=== PATIENT | male | born 1990 | race Two or more races ===

== ENCOUNTER 2017-06-06 13:07 | Inpatient (IN) | payer BC, OTHER ==
[~2017-06-06] VITALS: Ht 188 cm; Wt 184.0 kg
[2017-06-06] MEDS ORDERED: IBUPROFEN 200 MG TABLET ONE (13:57)
[2017-06-06] MEDS ORDERED: AMPICILLIN/SULBACTAM 3 GM in SODIUM CHLORIDE 0.9% 100 ML IVPB ONE (14:00)
[2017-06-06] MEDS ORDERED: VANCOMYCIN PER PHARMACY MC ONE (14:00)
[2017-06-06] MEDS ORDERED: SODIUM CHLORIDE FLUSH 10ML SYR IVF ONE (14:00)
[2017-06-06] MEDS ORDERED: AMPICILLIN/SULBACTAM 3 GM in SODIUM CHLORIDE 0.9% 50 ML IVPB ONE (14:00)
[2017-06-06] MEDS ORDERED: IBUPROFEN 200 MG TABLET PO ONE (14:00)
[2017-06-06] MEDS ORDERED: SODIUM CHLORIDE 0.9% 1,000ML IVBOLUS ONE ×2 (14:00→14:30)
[2017-06-06 14:13] LABS: HEMATOCRIT 46.1 % (39.2-51.8); HEMOGLOBIN 15.4 g/dL (13.7-18.0); WHITE BLOOD COUNT 27.1 x10^3/uL (3.4-10)
[2017-06-06 14:20] LABS: BLOOD UREA NITROGEN 9 mg/dL (7-18)
[2017-06-06] MEDS ORDERED: VANCOMYCIN PER PHARMACY MC PRN ×2 (14:30→17:30)
[2017-06-06] MEDS ORDERED: VANCOMYCIN 2,400 MG in SODIUM CHLORIDE 0.9% 500 ML IV ONE (14:30)
[2017-06-06] MEDS ORDERED: PIPERACILLIN/TAZO/PMX 3.375GM 50 ML IV ONE (14:30)
[2017-06-06 14:56] LABS: DIFF TOTAL CELLS COUNTED 100 CELL DIFF
[2017-06-06 14:59] LABS: ANISOCYTOSIS 1+; VERIFY COUNTS? YES
[2017-06-06] MEDS ORDERED: HYDROmorphone 2 MG/ML, 1ML IVPush ONE (15:00)
[2017-06-06] MEDS ORDERED: HYDROmorphone 1 MG/ML, 1ML ONE (15:05)
[2017-06-06] MEDS ORDERED: [UNRECOGNIZED DRUG - REMARK] MC SCH (16:00)
[2017-06-06] MEDS ORDERED: VANCOMYCIN PMX 1GM/200ML 200 ML IV ONE (16:00)
[2017-06-06] MEDS ORDERED: hydrALAzine 20 MG/ML, 1ML IVPush PRN (16:00)
[2017-06-06 16:15] VITALS: BP 129/85
[2017-06-06] MEDS ORDERED: CALCIUM CARBONATE 500 MG TAB.CHEW PO PRN (17:43)
[2017-06-06] MEDS ORDERED: PHARMACOKINETIC CONSULTATION MC ONE (18:00)
[2017-06-06] MEDS ORDERED: PHARMACOKINETIC MONITORING MC PRN (18:00)
[2017-06-06] MEDS ORDERED: ENOXAPARIN 40 MG/0.4 ML SQ SCH (18:00)
[2017-06-06] MEDS: HYDROcodone/APAP 5/325 TABLET PO PRN ×2 (18:06→23:50)
[2017-06-06] MEDS: ENOXAPARIN 40 MG/0.4 ML SQ SCH (18:07)
[2017-06-06] MEDS: SODIUM CHLORIDE 0.9% 1,000 ML IV SCH (18:07)
[2017-06-06] MEDS ORDERED: VANCOMYCIN 2,500 MG in SODIUM CHLORIDE 0.9% 500 ML IV ONE (19:00)
[2017-06-06 19:46] VITALS: BP 118/72
[2017-06-06] MEDS: AMPICILLIN/SULBACTAM 3 GM in SODIUM CHLORIDE 0.9% 100 ML IV SCH (20:00)
[2017-06-06] MEDS: PANTOPROZOLE 40MG TABLET PO SCH (21:19)
[2017-06-06] MEDS: TEMAZEPAM 15 MG CAPSULE PO PRN (23:45)
[2017-06-07 00:42] VITALS: BP 91/51
[2017-06-07] MEDS: SODIUM CHLORIDE 0.9% 1,000 ML IV SCH ×3 (01:00→23:45)
[2017-06-07] MEDS: AMPICILLIN/SULBACTAM 3 GM in SODIUM CHLORIDE 0.9% 100 ML IV SCH ×4 (01:11→21:00)
[2017-06-07] MEDS: ONDANSETRON 2MG/ML, 2ML IVPush PRN ×2 (04:46→18:20)
[2017-06-07] MEDS: morphine SULFATE 10 MG/ML, 1ML IVPush PRN ×5 (04:46→18:33)
[2017-06-07 05:53] LABS: HEMATOCRIT 44.8 % (39.2-51.8); WHITE BLOOD COUNT 21.1 x10^3/uL (3.4-10)
[2017-06-07 06:03] LABS: ASPARTATE AMINO TRANSFERASE 15 U/L (15-37); BLOOD UREA NITROGEN 8 mg/dL (7-18)
[2017-06-07] MEDS: ENOXAPARIN 40 MG/0.4 ML SQ SCH ×2 (06:15→17:14)
[2017-06-07] MEDS: VANCOMYCIN 2,200 MG in SODIUM CHLORIDE 0.9% 500 ML IV SCH (07:00)
[2017-06-07 07:38] VITALS: BP 120/76
[2017-06-07] MEDS: VANCOMYCIN PER PHARMACY MC SCH (09:00)
[2017-06-07] MEDS: PANTOPROZOLE 40MG TABLET PO SCH ×2 (09:26→20:10)
[2017-06-07] MEDS: ACETAMINOPHEN 325 MG TABLET PO PRN ×2 (10:17→20:22)
[2017-06-07 13:52] VITALS: BP 121/76
[2017-06-07] MEDS ORDERED: POTASSIUM PHOSPHATE 44 MEQ in SODIUM CHLORIDE 0.9% 500 ML IV ONE (16:30)
[2017-06-07 19:55] VITALS: BP 132/75
[2017-06-07] MEDS: TEMAZEPAM 15 MG CAPSULE PO PRN (20:22)
[2017-06-08] MEDS: morphine SULFATE 10 MG/ML, 1ML IVPush PRN ×6 (00:09→21:54)
[2017-06-08] MEDS: ONDANSETRON 2MG/ML, 2ML IVPush PRN ×4 (00:09→18:41)
[2017-06-08] MEDS: AMPICILLIN/SULBACTAM 3 GM in SODIUM CHLORIDE 0.9% 100 ML IV SCH ×4 (01:45→20:41)
[2017-06-08 02:08] VITALS: BP 102/63
[2017-06-08] MEDS: VANCOMYCIN 2,200 MG in SODIUM CHLORIDE 0.9% 500 ML IV SCH ×2 (03:11→16:08)
[2017-06-08] MEDS: ENOXAPARIN 40 MG/0.4 ML SQ SCH ×2 (05:27→18:46)
[2017-06-08 05:34] LABS: BLOOD UREA NITROGEN 8 mg/dL (7-18)
[2017-06-08 07:00] VITALS: BP 90/56
[2017-06-08] MEDS: VANCOMYCIN PER PHARMACY MC SCH (09:00)
[2017-06-08] MEDS: PANTOPROZOLE 40MG TABLET PO SCH ×2 (09:15→20:45)
[2017-06-08] MEDS: SODIUM CHLORIDE 0.9% 1,000 ML IV SCH ×2 (09:22→22:30)
[2017-06-08] MEDS ORDERED: POTASSIUM PHOSPHATE 44 MEQ in SODIUM CHLORIDE 0.9% 500 ML IV ONE (12:30)
[2017-06-08 13:07] VITALS: BP 100/66
[2017-06-08 18:26] VITALS: BP 113/72
[2017-06-08] MEDS: ACETAMINOPHEN 325 MG TABLET PO PRN (18:46)
[2017-06-09] MEDS: ONDANSETRON 2MG/ML, 2ML IVPush PRN ×2 (01:07→07:14)
[2017-06-09] MEDS: morphine SULFATE 10 MG/ML, 1ML IVPush PRN ×2 (01:07→06:15)
[2017-06-09] MEDS: AMPICILLIN/SULBACTAM 3 GM in SODIUM CHLORIDE 0.9% 100 ML IV SCH ×3 (01:54→14:00)
[2017-06-09 02:11] VITALS: BP 107/70
[2017-06-09] MEDS: VANCOMYCIN 2,200 MG in SODIUM CHLORIDE 0.9% 500 ML IV SCH ×2 (03:31→14:39)
[2017-06-09 05:32] LABS: BLOOD UREA NITROGEN 8 mg/dL (7-18)
[2017-06-09 05:55] LABS: HEMATOCRIT 36.4 % (39.2-51.8); HEMOGLOBIN 12.1 g/dL (13.7-18.0); WHITE BLOOD COUNT 9.8 x10^3/uL (3.4-10)
[2017-06-09] MEDS: ENOXAPARIN 40 MG/0.4 ML SQ SCH (06:15)
[2017-06-09 08:45] VITALS: BP 125/80
[2017-06-09] MEDS: VANCOMYCIN PER PHARMACY MC SCH (09:00)
[2017-06-09] MEDS: PANTOPROZOLE 40MG TABLET PO SCH (09:08)
[2017-06-09] MEDS ORDERED: ONDANSETRON 2MG/ML, 2ML IVPush PRN (10:00)
[2017-06-09] MEDS ORDERED: ONDA4TAB13 SL (13:51)
[2017-06-09] MEDS ORDERED: AMOX1TAB62 PO (13:51)
[2017-06-09] MEDS ORDERED: SULF1TAB24 PO (13:51)
[2017-06-09] MEDS ORDERED: PANT40TA5 PO (13:51)
[2017-06-09] MEDS ORDERED: ACET325T14 PO (13:51)
[2017-06-09] MEDS ORDERED: TRAM50TA2 PO (13:51)
[2017-06-09] MEDS ORDERED: ACID1TAB7 PO (13:51)
[2017-06-09] MEDS: SODIUM CHLORIDE 0.9% 1,000 ML IV SCH (14:00)
[2017-06-09 15:07] VITALS: BP 119/78
== END 2017-06-09 14:57 | disposition home or self-care (01) | DRG 872 ==
LOC: ED 13:45 → EDIP 14:29 → 4NOR 16:59
PROVIDERS: ADMIT Internal Medicine; ATTEND Internal Medicine
DX: A41.9 Sepsis, unspecified organism (principal); E66.01 Morbid (severe) obesity due to excess calories; L03.116 Cellulitis of left lower limb; Z68.43 Body mass index [BMI] 50.0-59.9, adult; E83.39 Other disorders of phosphorus metabolism; F12.90 Cannabis use, unspecified, uncomplicated; K21.9 Gastro-esophageal reflux disease without esophagitis; L29.9 Pruritus, unspecified; R26.2 Difficulty in walking, not elsewhere classified; R65.20 Severe sepsis without septic shock; Z80.0 Family history of malignant neoplasm of digestive organs
CPT/HCPCS: 36415; 80048; 80053; 82040; 83036; 83605; 83735; 84100; 84439; 84443; 85025; 87040; 96365; 96375; J0295; J1170; J1650; J2405; J3370; J2270; J7030; J7040